=== PATIENT | male | born 1970 | race Caucasian/White ===

== ENCOUNTER 2022-07-22 23:11 | Emergency (ER) | payer OTHER, SELFPAY ==
[2022-07-22 23:15] VITALS: O2SAT 99
[2022-07-22 23:18] VITALS: BP 133/70; PULSE 89; RESP 18; TEMP 36.7; O2SAT 99
[2022-07-22] MEDS: lidocaine HCL 2 % MULTIDOSE 20 ML VIAL INJECTION (23:18)
[2022-07-22] MEDS: fentaNYL 100 MCG/2 ML inj IM (23:36)
--- OUTSIDE RECORDS SUMMARY | 2022-07-23 00:11 | XMS_ITS | Continuity of Care Document ---
Author Name Unknown Organization [facility] Address [address] [address] [place] [address] Phone Care Team Providers Care Developer Support Engineer Name Role Phone Unavailable Unavailable Unavailable Allergies, Adverse Reactions, Alerts Substance Reaction Status Criticality No Known allergies Medications Medication Instructions Dosage Effective Dates (start - stop) Status Comments omeprazole 20 mg Cap, Delayed Release take 1 capsule (20MG) by oral route every day 1/2 hour before breakfast 20 MG - Active Procedures Procedure Date Ugi Endo; W/bx 1/mx Level Iv-surg Path Gross/micro 11 Immunocytochemistry, Each Antibody Advance Directives Directive Yes / No Effective Date File Name No Information Encounters Encounter Description Practice Location Reason(s) For Visit Diagnoses Date Provider Providers Copied on Encounter [facility] JOSE FRANCISCO, [address] [address], [place], [place], [id number], [place] tel:[phone] [facility] Procedures No Information No Information [facility] JOSE FRANCISCO, [address] [address], [place], [place], [id number], [place] tel:[phone] Larisa [facility] Gastritis W/o BleedGastroduod enal Dis NosDyspepsia/ac id Peptic Disease Link MD Owens. [address], [place], [place], [id number], [place]. tel:[phone] Referring Provider: [place], [address] [place], [address]. tel:[phone] Family History Family Member Type Diagnosis Age At Onset No Information Payers Payer name Insurance type Covered libertarian ID Authoriza tion(s) No Information Social History Type Description Quantity Date Captured Comments Sex Male Smoking Status No Information Chief Complaint And Reason For Visit No Information Reason For Referral Reason For Referral No Information Plan Of Treatment Date Type Action Status No Information History Of Present Illness Encounter Date Complaint History Of Prese nt Illness No Information Functional Status Date Functional Assessmen t No Information Instructions Date Instruction Additional Infor mation No Information Assessments Type Assessment Date No Information Patient Care Teams Name Effective Dates (start - stop) Status Members No Information
--- OUTSIDE RECORDS SUMMARY | 2022-07-23 00:11 | XMS_ITS | Continuity of Care Document ---
Author Name Unknown Organization [facility] Address [address] [address] [place] [address] Phone Care Team Providers Care Bone Grinder Name Role Phone Unavailable Unavailable Unavailable Allergies, [...] Date Provider Providers Copied on Encounter [facility] JOSE FRANCISCO, [address] [address], [place], [place], [id number], [place] tel:[phone] [facility] Procedures No Information No Information [facility] JOSE FRANCISCO, [address] [address], [place], [place], [id number], [place] tel:[phone] Larisa [facility] Gastritis W/o BleedGastroduod enal Dis NosDyspepsia/ac id Peptic Disease Link MD Owens. [address], [place], [place], [id number], [place]. tel:[phone] Referring Provider: [place], [address] [place], [address]. tel:[phone] Family History Family Member Type Diagnosis Age At Onset No Information Payers Payer name Insurance type Covered republican ID Authoriza tion(s) No Information Social History [...]
[2022-07-23 00:16] VITALS: BP 125/68; PULSE 78; RESP 18; TEMP 36.7; O2SAT 99
[2022-07-23 00:17] VITALS: BP 125/68; PULSE 78; RESP 18; TEMP 36.7
--- NOTE | 2022-07-23 16:40 | ED.GENADULT ---
HPI - General Adult General Chief complaint: Shoulder Injury/Pain Stated complaint: Dislocated left shoulder Time Seen by Provider: 07/22/22 23:14 History of Present Illness HPI narrative: Left Shoulder Dislocation pt. rolled in bed and should popped out of place. has happened before . cms intact. 51-year-old man presenting to the emergency department with significant other. Apparently tonight rolled over in bed and had abrupt onset of pain in the left shoulder. Has a history of dislocation of the shoulder approximately 3 times. Last time sounds like manipulation was attempted right away on presentation. He is having much more pain this time than prior. This was not a traumatic event here. Sensation intact. Related Data Home Medications Medication Instructions Recorded Confirmed No Known Home Medications 07/22/22 07/22/22 Allergies Allergy/AdvReac Type Severity Reaction Status Date / Time No Known Drug Allergies Allergy Verified 07/22/22 23:20 [facility] Medical History (Updated 07/23/22 @ 00:16 by Mello Hurtado RN) No significant past medical history Surgical History (Updated 07/23/22 @ 00:16 by Mello Hurtado RN) No significant past surgical history Social History Smoking Status: Never smoker Second hand tobacco smoke exposure: No How often do you have a drink containing alcohol: never How often do you have six or more drinks on one occasion: Never AUDIT-C Alcohol total score: 0 Non-prescribed substance use: denies use Exam Narrative: Exam Narrative: Large sulcus evident in the left deltoid consistent with anterior shoulder dislocation. Favoring left arm placed on a pillow bent at 90? of the elbow in front of him. Very uncomfortable though breathing easily. Intact sensation distally. Well-perfused. Const: Vital Signs, click to edit/add: Vital Signs - 24 hr 07/22/22 23:15 07/22/22 23:18 07/23/22 00:16 Temperature 98.0 F 98.0 F Pulse Rate [Right Pulse Oximeter] 89 78 Respiratory Rate 18 18 Blood Pressure [Ri ght Upper Arm] 133/70 125/68 Pulse Oximetry 99 99 99 Oxygen Delivery Me thod Room Air Room Air 07/23/22 00:17 Temperature 98.0 F Pulse Rate [Right Pulse Oximeter] 78 Respiratory Rate 18 Blood Pressure [Ri ght Upper Arm] 125/68 Pulse Oximetry Oxygen Delivery Me thod Documenting provider has reviewed patient's vital signs: yes Course Vital Signs Vital signs: Initial Vital Signs Pulse Oximetry 99 07/22/22 23:15 Vital Signs Pulse Oximetry 99 07/22/22 23:15 Temperature 98.0 F 07/23/22 00:17 Pulse Rate 78 07/23/22 00:17 Respiratory Rate 18 07/23/22 00:17 Blood Pressure 125/68 07/23/22 00:17 Pulse Oximetry 99 07/23/22 00:16 Oxygen Delivery Method Room Air 07/23/22 00:16 Medical Decision Making MDM Narrative Medical decision making narrative: Appears to clearly be an anterior shoulder dislocation. Due to recurrence of dislocations and ease of dislocation here tonight as described, I do not think imaging is necessary. After cleansing area with Betadine, injected 6 mL of 2% lidocaine into this sulcus/glenohumeral joint. He appears to be too tender just to quickly replace as I suspect resulting muscles spasm in resistance. Placed face down to traction. Attempted a little scapular manipulation but still too tender and tense. Ultimately also given IM fentanyl. Said he started to feel tingly. Shoulder subsequently spontaneously reduced with the traction. Able to move arm at the shoulder without significant pain. Sensation intact. Discharge Plan Discharge Clinical Impression: Anterior dislocation of left shoulder Patient Disposition: Home w/ Parent or Adult Condition: Improved Additional Instructions: Wear this arm sling for comfort over the next week to 10 days. See handout on exercises to stabilize your shoulder. Might follow up with primary care/physical therapy or even have a conversation with Orthopedics if this continues to be an issue. Prescriptions: No Action No Known Home Medications Stand Alone Forms: [employer] Info Instructions
== END 2022-07-23 00:18 | disposition home or self-care (01) ==
LOC: ED 07-23 00:09
PROVIDERS: Emergency Provider Family Medicine; PCP Family Medicine
DX: S43.005A Unspecified dislocation of left shoulder joint, initial encounter (principal); X58.XXXA Exposure to other specified factors, initial encounter; Y92.013 Bedroom of single-family (private) house as the place of occurrence of the external cause
CPT/HCPCS: 23650; 94761; 96372; 99284; J3010

== ENCOUNTER 2022-09-30 18:22 | Emergency (ER) | payer OTHER, SELFPAY ==
[2022-09-30 18:28] VITALS: BP 137/79; PULSE 70; RESP 18; TEMP 36.2; O2SAT 97; BMI 30.8
--- NOTE | 2022-09-30 19:09 | ED_ITS ---
HPI - Skin/Abscess/Foreign Bdy General Chief complaint: Skin/Abscess/Foreign Body Stated complaint: Rash on R side getting larger Time Seen by Provider: 09/30/22 18:34 Source: patient and family Mode of arrival: ambulatory Limitations: no limitations History of Present Illness HPI narrative: 52-year-old male presents to the emergency department for evaluation of rash on his right chest. Started under his right nipple 6 days ago, tender, thought it was a spider bite. Did not try any topical measures. Over the last few days, pain is increasing, wrapping around the right chest and back with sharp shooting pain and burning sensation at times. This is his 1st evaluation. No fever. Is feeling mildly achy and ill but no severe illness. No fever. No shortness of breath, dyspnea or other changes. No other family members have similar symptoms. No prior similar symptoms. He did have chickenpox as a child. No risk factors for contact with unvaccinated women or children under the age of 1. Past medical history is essentially benign. He denies major long-term health problems. ROS is notable for no other generalized, skin, musculoskeletal, respiratory changes. Related Data Previous Rx's Medication Instructions Recorded valacyclovir 1 gram tablet 1,000 mg PO BID #14 tabs 09/30/22 (Valtrex) Allergies Allergy/AdvReac Type Severity Reaction Status Date / Time No Known Drug Allergies Allergy Verified 07/22/22 23:20 [facility] Medical History (Updated 09/30/22 @ 18:58 by Marcelle Perdue MD) No significant past medical history Surgical History (Updated 07/23/22 @ 00:16 by Mello Hurtado RN) No significant past surgical history Social History Smoking Status: Never smoker Do you use any of these nicotine containing products: None Second hand tobacco smoke exposure: No How often do you have a drink containing alcohol: 2-4 times a month How many standard drinks containing alcohol do you have on a typical day: 1 or 2 How often do you have six or more drinks on one occasion: Never AUDIT-C Alcohol total score: 2 Non-prescribed substance use: denies use service: No Exam Const: Vital Signs, click to edit/add: Vital Signs - 24 hr 09/30/22 18:28 Temperature 97.1 F L Pulse Rate [Pulse Oximeter] 70 Respiratory Rate 18 Blood Pressure [Ri ght Upper Arm] 137/79 Pulse Oximetry 97 Oxygen Delivery Me thod Room Air Common normals: no apparent distress General appearance: cooperative, c omfortable and well kempt HENMT: Common normals: normocephalic Head and scalp: normocephalic Face and sinus: normal facial exam Eye: General eye: normal appearance of both eyes Resp: Common normals: normal respiratory effort and no use of accessory muscles Effort & inspection: able to speak in complete sentences Psych: Appearance: well kempt Activity/motor behavior: appropriate eye contact Mood and affect: euthymic mood Insight: insight good Judgement: judgment good Skin: Narrative: Classic blistery shingles rash wrapping around the T5 right dermatome from the back to under the right nipple. No lesions with significant surrounding redness, drainage. Course Course Hospital Course: Counseled on management, discussed risks and benefits of Valtrex on day 6. Can reduce the risk of post herpetic neuralgia. First dose given here in ED, add itional supply sent to pharmacy. Counseled on Tylenol and ibuprofen for pain control. Okay to use [id number] Vaseline for topical irritation. Lesions should crust over within about a week, resolve in about 2 more weeks. Did discuss shingles vaccine, should weight 60 days before receiving. Alarm symptoms reviewed that would warrant ED evaluation. He verbalized understanding and agreement Vital Signs Vital signs: Initial Vital Signs Temperature 97.1 F L 09/30/22 18:28 Temperature Source Temporal Artery Scan 09/30/22 18:28 Pulse Rate 70 09/30/22 18:28 Pulse Rhythm Regular 09/30/22 18:28 Respiratory Rate 18 09/30/22 18:28 Blood Pressure 137/79 09/30/22 18:28 Blood Pressure Mean 98 09/30/22 18:28 Blood Pressure Position Supine 09/30/22 18:28 Pulse Oximetry 97 09/30/22 18:28 Oxygen Delivery Method Room Air 09/30/22 18:28 Vital Signs Temperature 97.1 F L 09/30/22 18:28 Pulse Rate 70 09/30/22 18:28 Respiratory Rate 18 09/30/22 18:28 Blood Pressure 137/79 09/30/22 18:28 Pulse Oximetry 97 09/30/22 18:28 Oxygen Delivery Method Room Air 09/30/22 18:28 Temperature 97.1 F L 09/30/22 18:28 Pulse Rate 70 09/30/22 18:28 Respiratory Rate 18 09/30/22 18:28 Blood Pressure 137/79 09/30/22 18:28 Pulse Oximetry 97 09/30/22 18:28 Oxygen Delivery Method Room Air 09/30/22 18:28 Discharge Plan Discharge Clinical Impression: Herpes zoster Patient Disposition: Home w/ Parent or Adult Condition: Stable Instructions: Shingles (ED) Additional Instructions: As we discussed, this is classic shingles. Unfortunately, at day 6, this really just has to run its course. I do recommend that we start you on an antiviral medicine to reduce contagiousness but more importantly to reduce your risk of post herpetic neuralgia. Post herpetic neuralgia it is permanent pain in the area of shingles. For pain control, it is okay to use Tylenol 1000 mg every 6 hours and or ibuprofen 600 mg every 6 hours. You do not need to apply any topical creams or ointments but if you choose to, plain Vaseline is best. As we discussed, avoid children under the age of 1 and/or unvaccinated women with direct contact to your skin. Things will gradually crust over over the next 1-2 weeks and he will in time. You are at risk of getting shingles again. You should consider the shingles vaccine. You are eligible for this. For maximum immune response, I would recommend you weight 60 days after this episode to get your 1st vaccine. Activity Level: No Restrictions Discharge Diet: Regular Prescriptions: New valacyclovir [Valtrex] 1 gram tablet 1,000 mg PO BID Qty: 14 0RF Follow Up/Referrals: Todd Ortiz MD [Primary Care Provider] - Stand Alone Forms: [employer] Info Instructions
[2022-09-30] MEDS: VALACYCLOVIR HCL 500 MG TABLET 1000 MG PO (19:22)
== END 2022-09-30 19:33 | disposition home or self-care (01) ==
LOC: ED 19:21
PROVIDERS: Emergency Provider Family Medicine; PCP Family Medicine
DX: B02.9 Zoster without complications (principal)
CPT/HCPCS: 96372; 99283; 99284; A9270

== ENCOUNTER 2022-12-05 09:09 | Outpatient (CLI) | payer OTHER, SELFPAY | END 2022-12-05 09:10 | disposition home or self-care (01) | PROVIDERS: PCP Family Medicine; Visit Provider Emergency Medicine | DX: Z00.00 Encounter for general adult medical examination without abnormal findings (principal); Z13.6 Encounter for screening for cardiovascular disorders; Z12.5 Encounter for screening for malignant neoplasm of prostate; Z68.30 Body mass index [BMI] 30.0-30.9, adult | CPT/HCPCS: 80053; 80061; 84153 ==

== ENCOUNTER 2023-10-23 08:10 | Outpatient (CLI) | payer OTHER, SELFPAY ==
--- OUTSIDE RECORDS SUMMARY | 2023-10-27 07:01 | XMS_ITS | Encounter Summary ---
Author Organization [facility] Address [address] [place] [address]. [place] [address] Care Team Providers Care Pelts Skinner Name Role Phone David Medley MD Primary Care Provider [phone] Reason for Visit * Auth/Cert Specialty Diagnoses / Procedures Referred By Morales cole Referred To Contact Gastroenterology Diagnoses Colon cancer screening Colon cancer screening [Z12.11] Procedures [place] COLONOSCOPY W/WO BRUSH/WASH Colonoscopy Endoscopy [address] [place] [address] Referral ID Status Reason Start Date Expiration Date Visits Re quested Visits Authorized [id number] 1 1 Encounter Details Date Type Department Care Team (Late st Contact Info) Description 08/23/2023 1:15 PM CDT - 08/23/2023 1:45 PM CDT Surgery [facility] Endoscopy [place] [address] [place] [phone] Danitza Resendez MD [facility] [id number] [place] [id number] Colonoscopy Surgery Details Date/Time Status Location OR Service Patient Class Case Class Case Type Trauma Case? 08/23/23 1:15 PM Posted GI GI B Gastroenterology Outpatient Elective Panel 1 Procedure LRB Anes Op Region Wound Class Comments Colonoscopy N/A Moderate Sedation Rectum II-Clean C ontaminated Surgeon Surgeon Role Service Panel Danitza Resendez MD Primary Gastroenterology 1 documented in this encounter Social History Tobacco Use Types Packs/Day Years Used Date Smoking Tobacco: Never Alcohol Use Standard Drinks/Week Comments Yes 0 (1 standard drink = 0.6 oz pur e alcohol) 2 drinks per week Adolescent Education Answer Date Record ed Getting School Help Needed Not on file 07/22 Sex and Gender Information Value Date Recorded Sex Assigned at Not on file Gender Identity Not on file Sexual Orientation Not on file documented as of this encounter Last Filed Vital Signs Vital Sign Reading Time Taken Comments Blood Pressure 116/79 08/23/2023 1:40 PM CDT Pulse 72 08/23/2023 1:40 PM CDT Temperature - - Respiratory Rate 15 08/23/2023 1:40 PM CDT Oxygen Saturation 97% 08/23/2023 1:40 PM CDT Inhaled Oxygen Concentration - - Weight 102.1 kg (225 lb) 08/23/2023 12:51 PM CDT Height 188 cm (6' 2) 08/23/2023 12:51 PM CDT Body Mass Index 28.89 08/23/2023 12:51 PM CDT documented in this encounter Discharge Instructions * Discharge Instructions* Victoria Chi RN - 08/23/2023 1:25 PM CDT The patient has received a copy of the Provation report the doctor has written and discharge instructions have been discussed with the patient and responsible adult. All questions were addressed and answered prior to patient discharge. * Attachments The following attachments cannot be sent through Care Everywhere. * Diverticulosis and Diverticulitis: General Info (Greenlandic) * High-Fiber Diet (Greenlandic) documented in this encounter Medications at Time of Discharge Medication Sig Dispensed Refills Start Date End Date NO ACTIVE MEDICATIONS documented as of this encounter H&P Notes * Danitza Resendez MD - 08/23/2023 12:52 PM CDT Pre-Endoscopy History and Physical Andi Alexander Date of : 1970 Age: [age] year old Date of Procedure: 08/23/2023 Primary care provider: David Medley Type of Endoscopy: Colonoscopy with possible biopsy, possible polypectomy Reason for Procedure: screen Type of Anesthesia Anticipated: Conscious Sedation HPI: Andi is a 52 year old male who will be undergoing the above procedure. A history and physical has been performed. The patient's medications and allergies have been reviewed. The risks and benefits of the procedure and the sedation options and risks were discussed with the patient. All questions were answered and informed consent was obtained. He denies a personal or family history of anesthesia complications or bleeding disorders. Patient Active Problem List Diagnosis (none) - all problems resolved or deleted No past medical history on file. Past Surgical History: Procedure Laterality Date COLONOSCOPY 03/17/2013 Dr. Resendez [facility] COLONOSCOPY 03/17/2013 Procedure: COLONOSCOPY; Colonoscopy/WW; Surgeon: Danitza Resendez MD; Location: GI Social History Tobacco Use Smoking status: Never Smokeless tobacco: Not on file Substance Use Topics Alcohol use: Yes Comment: 2 drinks per week History reviewed. No pertinent family history. Prior to Admission medications Medication Sig Start Date End Date Taking? Authorizing Provider NO ACTIVE MEDICATIONS Reported, Patient No Known Allergies REVIEW OF SYSTEMS: 5 point ROS negative except as noted above in HPI, including Gen., Resp., CV, GI & system review. PHYSICAL EXAM: There were no vitals taken for this visit. Estimated body mass index is 30.17 kg/m?? as calculated from the following: Height as of 03/16/13: 1.88 m (6' 2). Weight as of 03/16/13: 106.6 kg (235 lb). GENERAL APPEARANCE: alert, and oriented MENTAL STATUS: alert AIRWAY EXAM: Mallampatti Class I (visualization of the soft palate, fauces, uvula, anterior and posterior pillars) RESP: lungs clear to auscultation - no rales, rhonchi or wheezes CV: regular rates and rhythm DIAGNOSTICS: Not indicated IMPRESSION ASA Class 2 - Mild systemic disease PLAN: Plan for Colonoscopy with possible biopsy, possible polypectomy. We discussed the risks, benefits and alternatives and the patient wished to proceed. The above has been forwarded to the consulting provider. Signed Electronically by: Danitza Resendez MD August 23, 2023 documented in this encounter Plan of Treatment Not on file documented as of this encounter Procedures Procedure Name Priority Date/Time Associated Diagnosis Comments Colonoscopy w/wo [place] Performed 08/23/2023 12:54 PM CDT Colon cancer screening COLONOSCOPY Routine 08/23/2023 12:46 PM CDT documented in this encounter Results * COLONOSCOPY (08/23/2023 12:46 PM CDT) [facility] Patient Name: Andi Alexander ? Procedure Date: 08/23/2023 12:46 PM ? Date of : 1970 ?Admit Type: Outpatient Age: 52 ? Gender: Male Attending MD: DANITZA RESENDEZ MD, ??Total Sedation Time: 17_minutes continuous bedside 1:1 Instrument Name: 223 - Adult Colonoscope Procedure: ?Colonoscopy Indications: ?Screening for colorectal malignant neoplasm Providers: ?DANITZA RESENDEZ MD (Doctor) Referring MD: ? Medicines: ?Midazolam 3 mg IV, Fentanyl 150 micrograms IV Complications: ?No immediate complications. Procedure: ?Pre-Anesthesia Assessment: ?- Prior to the procedure, a History and Physical ?was performed, and patient medications and ?allergies were reviewed. The patient is competent. ?The risks and benefits of the procedure and the ?sedation options and risks were discussed with the ?patient. All questions were answered and informed ?consent was obtained. Patient identification and ?proposed procedure were verified by the physician ?in the procedure room. Mental Status Examination: ?alert and oriented. Airway Examination: normal ?oropharyngeal airway and neck mobility. Respiratory ?Examination: clear to auscultation. CV Examination: ?normal. Prophylactic Antibiotics: The patient does ?not require prophylactic antibiotics. Prior ?Anticoagulants: The patient has taken no ?anticoagulant or antiplatelet agents. ASA Grade ?Assessment: II - A patient with mild systemic ?disease. After reviewing the risks and benefits, ?the patient was deemed in satisfactory condition to ?undergo the procedure. The anesthesia plan was to ?use moderate sedation / analgesia (conscious ?sedation). Immediately prior to administration of ?medications, the patient was re-assessed for ?adequacy to receive sedatives. The heart rate, ?respiratory rate, oxygen saturations, blood ?pressure, adequacy of pulmonary ventilation, and ?response to care were monitored throughout the ?procedure. The physical status of the patient was ?re-assessed after the procedure. ?After obtaining informed consent, the colonoscope ?was passed under direct vision. Throughout the ?procedure, the patient's blood pressure, pulse, and ?oxygen saturations were monitored continuously. The ?Cryptmint Adult Colonoscope, Model # CF-[id number], ?Censitrac # [id number] was introduced through the ?anus and advanced to the terminal ileum, with ?identification of the appendiceal orifice and IC ?valve. The colonoscopy was performed without ?difficulty. The patient tolerated the procedure ?fairly well. The quality of the bowel preparation ?was good. The ileocecal valve, appendiceal orifice, ?and rectum were photographed. ? Findings: ? The perianal and digital rectal examinations were normal. ? Many small-mouthed diverticula were found in the sigmoid colon. ? The exam was otherwise without abnormality on direct and retroflexion ? views. ? The terminal ileum appeared normal. ? Impression: ? - Diverticulosis in the sigmoid colon. ?- The examination was otherwise normal on direct ?and retroflexion views. ?- No specimens collected. Recommendation: ? - Repeat colonoscopy in 10 years for screening ?purposes. ? Procedure Code(s): ? --- Professional --- ? G0121, Colorectal cancer screening; colonoscopy on individual not ? meeting criteria for high risk Diagnosis Code(s): ? --- Professional --- ? Z12.11, Encounter for screening for malignant neoplasm of colon CPT copyright 2021 [employer]. All rights reserved. The codes documented in this report are preliminary and upon mounted police review may be revised to meet current compliance requirements. Electronically signed by Danitza Resendez MD __ DANITZA RESENDEZ MD 08/23/2023 1:19:20 PM I was physically present for the entire viewing portion of the exam. DANITZA RESENDEZ MD Number of Addenda: 0 Note Initiated On: 08/23/2023 12:46 PM MRN: ?[id number] Procedure Date: ? 08/23/2023 12:46:44 PM Scope Withdrawal Time: 0 hours 7 minutes 12 seconds Total Procedure Duration: 0 hours 15 minutes 59 seconds Estimated Blood Loss: ? Scope In: 12:58:34 PM Scope Out: 1:14:33 PM RADIOLOGY RESULTS 08/23/2023 12:4 6 PM CDT Danitza Resendez MD PROCEDURES RADIOLOGY RESULTS documented in this encounter Visit Diagnoses Diagnosis Colon cancer screening Special screening for malignant neoplasms, colon documented in this encounter Administered Medications Inactive Administered Medications - up to 3 most recent administrations Medication Order MAR Action Action Date Dose Rate Site atropine injection 1 mg 1 mg, Intravenous, ONCE PRN, other, Bradycardia, Starting on Sat08/23/23 at 1251, For 1 dose, Intra-procedure benzocaine 20% (HURRICAINE/TOPEX) 20 % spray 0.5 mL 0.5 mL (1 spray), Mouth/Throat, ONCE PRN, sore throat, Starting on Sat08/23/23 at 1251, For 1 dose, [place] throat with 1 spray 5 minutes prior to procedure., Intra-procedure diphenhydrAMINE (BENADRYL) injection 25-50 mg 25-50 mg, Intravenous, ONCE PRN, other, for sedations, dose per provider direction., Administer over 1-2 Minutes, Starting on Sat08/23/23 at 1251, For 1 dose, Intra-procedure EPINEPHrine (Anaphylaxis) (ADRENALIN) injection (vial) 0.1 mg 0.1 mg, Submucosal, ONCE PRN, bleeding, Starting on Sat08/23/23 at 1251, For 1 dose, RN to dilute 1 mL (1 mg) of EPINEPHrine with 9 mL of 0.9% sodium chloride to equal a 0.1 mg/mL concentration. Inject 1 mL (0.1 mg) into submucosa via a sclerotherapy injection needle. Not for direct undiluted intravenous injection (1 mg/mL = 1:1000), Intra-procedure fentaNYL (PF) (SUBLIMAZE) injection 50-100 mcg 50-100 mcg, Intravenous, EVERY 5 MIN PRN, severe pain, If inadequate response may repeat every 3 min PRN severe pain; when verbally requested by provider., Starting on Sat08/23/23 at 1251, Doses can be exceeded under direct oversight of patient by physician., Intra-procedure $Given 08/23/2023 1:04 PM CDT 50 mcg $Given 08/23/2023 12:57 PM CDT 100 mcg flumazenil (ROMAZICON) injection 0.2 mg 0.2 mg, Intravenous, EVERY 1 MIN PRN, benzodiazepine reversal, If inadequate response after 45 seconds, may repeat 0.2 mg IV every 1 minute PRN over sedation., Administer over 1 Minutes, Starting on Sat08/23/23 at 1251, Give over 15 seconds. Maximum total dose of 1 mg. Continue monitoring until discharge criteria met for a minimum of 2 hours. Irritant. Use with caution in patients on benzodiazepine therapy., Intra-procedure flumazenil (ROMAZICON) injection 0.2 mg 0.2 mg, Intravenous, EVERY 1 MIN PRN, benzodiazepine reversal, over sedation, Administer over 1 Minutes, Starting on Sat08/23/23 at 1325, For 12 hours, Give over 15 seconds. If inadequate response after 45 seconds, may repeat up to a MAX total dose of 1 mg. Continue monitoring until discharge criteria are met for a minimum of 2 hours Irritant. Use with caution in patients on benzodiazepine therapy. glucagon injection 0.5 mg 0.5 mg, Intravenous, ONCE PRN, other, gi motility, Starting on Sat08/23/23 at 1251, For 1 dose, Intra-procedure lidocaine (LMX4) cream Topical, EVERY 1 HOUR PRN, pain, with VAD insertion, Starting on Sat08/23/23 at 1252, Apply at least 30 minutes prior to VAD insertion in divided doses as needed for size of site for insertion. MAX Dose: 2.5 g (?? of 5 g tube) Do NOT give if patient has a history of allergy to any local anesthetic or any jennifer product. Do NOT use both lidocaine intradermal/subcutaneous injection and the lidocaine cream on the same site., Pre-procedure lidocaine 1 % 0.1-1 mL 0.1-1 mL, Other, EVERY 1 HOUR PRN, mild pain with VAD insertion, Starting on Sat08/23/23 at 1252, MAX dose 1 mL subcutaneous OR intradermal along the side of the vein in divided doses as needed for VAD insertion. Do NOT give if patient has a history of allergy to any local anesthetic or any jennifer product. Do NOT use both lidocaine intradermal/subcutaneous injection and the lidocaine cream on the same site., Pre-procedure midazolam (VERSED) injection 0.5-2 mg 0.5-2 mg, Intravenous, EVERY 4 MIN PRN, sedation, If inadequate response may repeat every 4 minutes PRN sedation until desired response; when verbally requested by provider., Starting on Sat08/23/23 at 1251, Doses can be exceeded under direct oversight of patient by physician. This drug may cause significant respiratory depression. Monitor respiratory status and vital signs carefully for 1 hour after each dose., Intra-procedure $Given 08/23/2023 1:04 PM CDT 1 mg $Given 08/23/2023 12:57 PM CDT 2 mg naloxone (NARCAN) injection 0.2 mg 0.2 mg, Intravenous, EVERY 2 MIN PRN, opioid reversal, Starting on Sat08/23/23 at 1251, Administer intravenous route when available and notify provider when administered. For unintended sedation or respiratory depression if all of the below criteria are met: ~ respiratory rate LESS than or EQUAL to 8. ~SaO2 less than 92% and or/end-tidal CO2 is greater than 50. ~ the patient is receiving an opioid, has unintended sedations assessed as RASS (-3), and is currently not on mechanical ventilation. RASS scale moderate (-3) is movement or eye opening to voice but no eye contact. Patient Monitoring Once the patient has demonstrated a response to the naloxone, continue to monitor respiratory rate, depth, oxygen saturation and end-tidal CO2 (if available) every 15 minutes x 2, then every 30 minutes x 2, then every 1 hour x 1 after each naloxone dose. Consider transfer to ICU if patient respiratory parameters have not improved after 4 naloxone doses., Intra-procedure naloxone (NARCAN) injection 0.2 mg 0.2 mg, Intramuscular, EVERY 2 MIN PRN, opioid reversal, Starting on Sat08/23/23 at 1251, Administer intramuscular if an intravenous route is not available and notify provider when administered. For unintended sedation or respiratory depression if all of the below criteria are met: ~ respiratory rate LESS than or EQUAL to 8. ~SaO2 less than 92% and or/end-tidal CO2 is greater than 50. ~ the patient is receiving an opioid, has unintended sedations assessed as RASS (-3), and is currently not on mechanical ventilation. RASS scale moderate (-3) is movement or eye opening to voice but no eye contact. Patient Monitoring Once the patient has demonstrated a response to the naloxone, continue to monitor respiratory rate, depth, oxygen saturation and end-tidal CO2 (if available) every 15 minutes x 2, then every 30 minutes x 2, then every 1 hour x 1 after each naloxone dose. Consider transfer to ICU if patient respiratory parameters have not improved after 4 naloxone doses., Intra-procedure naloxone (NARCAN) injection 0.4 mg 0.4 mg, Intravenous, EVERY 2 MIN PRN, opioid reversal, Starting on Sat08/23/23 at 1251, Administer intravenous route when available and notify provider when administered. For unintended sedation or respiratory depression if all of the below criteria are met: ~ respiratory rate LESS than or EQUAL to 8. ~ SaO2 less than 92% and or/end-tidal CO2 is greater than 50. ~ the patient is receiving an opioid, has unintended sedation assessed as RASS (-4) or (-5) and patient is currently not on mechanical ventilation. RASS scale (-4) is deep sedation with no response to voice but movement or eye opening to physical stimulation. RASS scale (-5) is unarousable. Patient Monitoring Once the patient has demonstrated a response to the naloxone, continue to monitor respiratory rate, depth, oxygen saturation and end-tidal CO2 (if available) every 15 minutes x 2, then every 30 minutes x 2, then every 1 hour x 1 after each naloxone dose. Consider transfer to ICU if patient respiratory parameters have not improved after 4 naloxone doses., Intra-procedure naloxone (NARCAN) injection 0.4 mg 0.4 mg, Intramuscular, EVERY 2 MIN PRN, opioid reversal, Starting on Sat08/23/23 at 1251, Administer intramuscular if an intravenous route is not available and notify provider when administered. For unintended sedation or respiratory depression if all of the below criteria are met: ~ respiratory rate LESS than or EQUAL to 8. ~ SaO2 less than 92% and or/end-tidal CO2 is greater than 50. ~ the patient is receiving an opioid, has unintended sedation assessed as RASS (-4) or (-5) and patient is currently not on mechanical ventilation. RASS scale (-4) is deep sedation with no response to voice but movement or eye opening to physical stimulation. RASS scale (-5) is unarousable. Patient Monitoring Once the patient has demonstrated a response to the naloxone, continue to monitor respiratory rate, depth, oxygen saturation and end-tidal CO2 (if available) every 15 minutes x 2, then every 30 minutes x 2, then every 1 hour x 1 after each naloxone dose. Consider transfer to ICU if patient respiratory parameters have not improved after 4 naloxone doses., Intra-procedure ondansetron (ZOFRAN ODT) ODT tab 4 mg 4 mg, Oral, EVERY 6 HOURS PRN, nausea, vomiting, Starting on Sat08/23/23 at 1325, This is Step 1 of nausea and vomiting management. If nausea not resolved in 15 minutes, go to Step 2 prochlorperazine (COMPAZINE). Do not push through foil backing. Peel back foil and gently remove. Place on tongue immediately. Administration with liquid unnecessary With dry hands, peel back foil backing and gently remove tablet. Do not push oral disintegrating tablet through foil backing. Administer immediately on tongue and oral disintegrating tablet dissolves in seconds, then swallow with saliva. Liquid not required. ondansetron (ZOFRAN) injection 4 mg 4 mg, Intravenous, ONCE PRN, nausea, vomiting, Administer over 2-5 Minutes, Starting on Sat08/23/23 at 1252, For 1 dose, Give in ENDO pre procedure prep area. Irritant., Pre-procedure ondansetron (ZOFRAN) injection 4 mg 4 mg, Intravenous, EVERY 6 HOURS PRN, nausea, vomiting, Administer over 2-5 Minutes, Starting on Sat08/23/23 at 1325, This is Step 1 of nausea and vomiting management. If nausea not resolved in 15 minutes, go to Step 2 prochlorperazine (COMPAZINE). Irritant. prochlorperazine (COMPAZINE) injection 10 mg 10 mg, Intravenous, EVERY 6 HOURS PRN, nausea, vomiting, Administer over 1-2 Minutes, Starting on Sat08/23/23 at 1325, This is Step 2 of nausea and vomiting management. If nausea not resolved in 15-30 minutes, Notify provider. prochlorperazine (COMPAZINE) tablet 10 mg 10 mg, Oral, EVERY 6 HOURS PRN, nausea, vomiting, Starting on Sat08/23/23 at 1325, This is Step 2 of nausea and vomiting management. If nausea not resolved in 15- 30 minutes, Notify provider. simethicone (MYLICON) suspension 133 mg 133 mg, Oral, ONCE PRN, other, gas bubbles, Starting on Sat08/23/23 at 1251, For 1 dose, Give via endoscope, Intra-procedure sodium chloride (PF) 0.9% PF flush 3 mL 3 mL, Intracatheter, EVERY 8 HOURS, First dose on Sat08/23/23 at 1300, to lock peripheral IV dormant line, Pre-procedure sodium chloride (PF) 0.9% PF flush 3 mL 3 mL, Intracatheter, EVERY 1 MIN PRN, line flush, other, to ensure patency or to lock dormant line, Starting on Sat08/23/23 at 1252, Pre-procedure sodium chloride (PF) 0.9% PF flush 3 mL 3 mL, Intravenous, EVERY 1 MIN PRN, line flush, Starting on Sat08/23/23 at 1251, Indications: for Peripheral IV flush post IV meds, Intra-procedure sodium chloride 0.9% BOLUS 500 mL Intravenous, 500 mL, ONCE PRN, at 500 mL/hr, Administer over 1 Hours, other, hypotension, Starting on Sat08/23/23 at 1251, For 1 dose, Intra-procedure documented in this encounter Active and Recently Administered Medications Times are shown in CDT. Scheduled Medication Order 08/21/2023 08/22/2023 08/23/2023 sodium chloride (PF) 0.9% PF flush 3 mL 3 mL, Intracatheter, EVERY 8 HOURS, First dose on Sat08/23/23 at 1300, to lock peripheral IV dormant line, Pre-procedure 1300 (Canceled Entry - Provider: Orders Generic Provider - Comment: Automatically canceled at discontinue of medication order) PRN Medication Order 08/21/2023 08/22/2023 08/23/2023 atropine injection 1 mg 1 mg, Intravenous, ONCE PRN, other, Bradycardia, Starting on Sat08/23/23 at 1251, For 1 dose, Intra-procedure benzocaine 20% (HURRICAINE/TOPEX) 20 % spray 0.5 mL 0.5 mL (1 spray), Mouth/Throat, ONCE PRN, sore throat, Starting on Sat08/23/23 at 1251, For 1 dose, [place] throat with 1 spray 5 minutes prior to procedure., Intra-procedure diphenhydrAMINE (BENADRYL) injection 25-50 mg 25-50 mg, Intravenous, ONCE PRN, other, for sedations, dose per provider direction., Administer over 1-2 Minutes, Starting on Sat08/23/23 at 1251, For 1 dose, Intra-procedure EPINEPHrine (Anaphylaxis) (ADRENALIN) injection (vial) 0.1 mg 0.1 mg, Submucosal, ONCE PRN, bleeding, Starting on Sat08/23/23 at 1251, For 1 dose, RN to dilute 1 mL (1 mg) of EPINEPHrine with 9 mL of 0.9% sodium chloride to equal a 0.1 mg/mL concentration. Inject 1 mL (0.1 mg) into submucosa via a sclerotherapy injection needle. Not for direct undiluted intravenous injection (1 mg/mL = 1:1000), Intra-procedure fentaNYL (PF) (SUBLIMAZE) injection 50-100 mcg 50-100 mcg, Intravenous, EVERY 5 MIN PRN, severe pain, If inadequate response may repeat every 3 min PRN severe pain; when verbally requested by provider., Starting on Sat08/23/23 at 1251, Doses can be exceeded under direct oversight of patient by physician., Intra-procedure 1257 ($Given - Provi abel: Magalis Ramirez RN)1304 ($Given - Provider: Magalis Ramirez RN) flumazenil (ROMAZICON) injection 0.2 mg 0.2 mg, Intravenous, EVERY 1 MIN PRN, benzodiazepine reversal, If inadequate response after 45 seconds, may repeat 0.2 mg IV every 1 minute PRN over sedation., Administer over 1 Minutes, Starting on Sat08/23/23 at 1251, Give over 15 seconds. Maximum total dose of 1 mg. Continue monitoring until discharge criteria met for a minimum of 2 hours. Irritant. Use with caution in patients on benzodiazepine therapy., Intra-procedure flumazenil (ROMAZICON) injection 0.2 mg 0.2 mg, Intravenous, EVERY 1 MIN PRN, benzodiazepine reversal, over sedation, Administer over 1 Minutes, Starting on Sat08/23/23 at 1325, For 12 hours, Give over 15 seconds. If inadequate response after 45 seconds, may repeat up to a MAX total dose of 1 mg. Continue monitoring until discharge criteria are met for a minimum of 2 hours Irritant. Use with caution in patients on benzodiazepine therapy. glucagon injection 0.5 mg 0.5 mg, Intravenous, ONCE PRN, other, gi motility, Starting on Sat08/23/23 at 1251, For 1 dose, Intra-procedure lidocaine (LMX4) cream Topical, EVERY 1 HOUR PRN, pain, with VAD insertion, Starting on Sat08/23/23 at 1252, Apply at least 30 minutes prior to VAD insertion in divided doses as needed for size of site for insertion. MAX Dose: 2.5 g (?? of 5 g tube) Do NOT give if patient has a history of allergy to any local anesthetic or any jennifer product. Do NOT use both lidocaine intradermal/subcutaneous injection and the lidocaine cream on the same site., Pre-procedure lidocaine 1 % 0.1-1 mL 0.1-1 mL, Other, EVERY 1 HOUR PRN, mild pain with VAD insertion, Starting on Sat08/23/23 at 1252, MAX dose 1 mL subcutaneous OR intradermal along the side of the vein in divided doses as needed for VAD insertion. Do NOT give if patient has a history of allergy to any local anesthetic or any jennifer product. Do NOT use both lidocaine intradermal/subcutaneous injection and the lidocaine cream on the same site., Pre-procedure midazolam (VERSED) injection 0.5-2 mg 0.5-2 mg, Intravenous, EVERY 4 MIN PRN, sedation, If inadequate response may repeat every 4 minutes PRN sedation until desired response; when verbally requested by provider., Starting on Sat08/23/23 at 1251, Doses can be exceeded under direct oversight of patient by physician. This drug may cause significant respiratory depression. Monitor respiratory status and vital signs carefully for 1 hour after each dose., Intra-procedure 1257 ($Given - Provi abel: Magalis Ramirez RN)1304 ($Given - Provider: Magalis Ramirez RN) naloxone (NARCAN) injection 0.2 mg(Linked Group 1) 0.2 mg, Intravenous, EVERY 2 MIN PRN, opioid reversal, Starting on Sat08/23/23 at 1251, Administer intravenous route when available and notify provider when administered. For unintended sedation or respiratory depression if all of the below criteria are met: ~ respiratory rate LESS than or EQUAL to 8. ~SaO2 less than 92% and or/end-tidal CO2 is greater than 50. ~ the patient is receiving an opioid, has unintended sedations assessed as RASS (-3), and is currently not on mechanical ventilation. RASS scale moderate (-3) is movement or eye opening to voice but no eye contact. Patient Monitoring Once the patient has demonstrated a response to the naloxone, continue to monitor respiratory rate, depth, oxygen saturation and end-tidal CO2 (if available) every 15 minutes x 2, then every 30 minutes x 2, then every 1 hour x 1 after each naloxone dose. Consider transfer to ICU if patient respiratory parameters have not improved after 4 naloxone doses., Intra-procedure naloxone (NARCAN) injection 0.2 mg(Linked Group 1) 0.2 mg, Intramuscular, EVERY 2 MIN PRN, opioid reversal, Starting on Sat08/23/23 at 1251, Administer intramuscular if an intravenous route is not available and notify provider when administered. For unintended sedation or respiratory depression if all of the below criteria are met: ~ respiratory rate LESS than or EQUAL to 8. ~SaO2 less than 92% and or/end-tidal CO2 is greater than 50. ~ the patient is receiving an opioid, has unintended sedations assessed as RASS (-3), and is currently not on mechanical ventilation. RASS scale moderate (-3) is movement or eye opening to voice but no eye contact. Patient Monitoring Once the patient has demonstrated a response to the naloxone, continue to monitor respiratory rate, depth, oxygen saturation and end-tidal CO2 (if available) every 15 minutes x 2, then every 30 minutes x 2, then every 1 hour x 1 after each naloxone dose. Consider transfer to ICU if patient respiratory parameters have not improved after 4 naloxone doses., Intra-procedure naloxone (NARCAN) injection 0.4 mg(Linked Group 1) 0.4 mg, Intravenous, EVERY 2 MIN PRN, opioid reversal, Starting on Sat08/23/23 at 1251, Administer intravenous route when available and notify provider when administered. For unintended sedation or respiratory depression if all of the below criteria are met: ~ respiratory rate LESS than or EQUAL to 8. ~ SaO2 less than 92% and or/end-tidal CO2 is greater than 50. ~ the patient is receiving an opioid, has unintended sedation assessed as RASS (-4) or (-5) and patient is currently not on mechanical ventilation. RASS scale (-4) is deep sedation with no response to voice but movement or eye opening to physical stimulation. RASS scale (-5) is unarousable. Patient Monitoring Once the patient has demonstrated a response to the naloxone, continue to monitor respiratory rate, depth, oxygen saturation and end-tidal CO2 (if available) every 15 minutes x 2, then every 30 minutes x 2, then every 1 hour x 1 after each naloxone dose. Consider transfer to ICU if patient respiratory parameters have not improved after 4 naloxone doses., Intra-procedure naloxone (NARCAN) injection 0.4 mg(Linked Group 1) 0.4 mg, Intramuscular, EVERY 2 MIN PRN, opioid reversal, Starting on Sat08/23/23 at 1251, Administer intramuscular if an intravenous route is not available and notify provider when administered. For unintended sedation or respiratory depression if all of the below criteria are met: ~ respiratory rate LESS than or EQUAL to 8. ~ SaO2 less than 92% and or/end-tidal CO2 is greater than 50. ~ the patient is receiving an opioid, has unintended sedation assessed as RASS (-4) or (-5) and patient is currently not on mechanical ventilation. RASS scale (-4) is deep sedation with no response to voice but movement or eye opening to physical stimulation. RASS scale (-5) is unarousable. Patient Monitoring Once the patient has demonstrated a response to the naloxone, continue to monitor respiratory rate, depth, oxygen saturation and end-tidal CO2 (if available) every 15 minutes x 2, then every 30 minutes x 2, then every 1 hour x 1 after each naloxone dose. Consider transfer to ICU if patient respiratory parameters have not improved after 4 naloxone doses., Intra-procedure ondansetron (ZOFRAN ODT) ODT tab 4 mg(Linked Group 2) 4 mg, Oral, EVERY 6 HOURS PRN, nausea, vomiting, Starting on Sat08/23/23 at 1325, This is Step 1 of nausea and vomiting management. If nausea not resolved in 15 minutes, go to Step 2 prochlorperazine (COMPAZINE). Do not push through foil backing. Peel back foil and gently remove. Place on tongue immediately. Administration with liquid unnecessary With dry hands, peel back foil backing and gently remove tablet. Do not push oral disintegrating tablet through foil backing. Administer immediately on tongue and oral disintegrating tablet dissolves in seconds, then swallow with saliva. Liquid not required. ondansetron (ZOFRAN) injection 4 mg 4 mg, Intravenous, ONCE PRN, nausea, vomiting, Administer over 2-5 Minutes, Starting on Sat08/23/23 at 1252, For 1 dose, Give in ENDO pre procedure prep area. Irritant., Pre-procedure ondansetron (ZOFRAN) injection 4 mg(Linked Group 2) 4 mg, Intravenous, EVERY 6 HOURS PRN, nausea, vomiting, Administer over 2-5 Minutes, Starting on Sat08/23/23 at 1325, This is Step 1 of nausea and vomiting management. If nausea not resolved in 15 minutes, go to Step 2 prochlorperazine (COMPAZINE). Irritant. prochlorperazine (COMPAZINE) injection 10 mg(Linked Group 3) 10 mg, Intravenous, EVERY 6 HOURS PRN, nausea, vomiting, Administer over 1-2 Minutes, Starting on Sat08/23/23 at 1325, This is Step 2 of nausea and vomiting management. If nausea not resolved in 15-30 minutes, Notify provider. prochlorperazine (COMPAZINE) tablet 10 mg(Linked Group 3) 10 mg, Oral, EVERY 6 HOURS PRN, nausea, vomiting, Starting on Sat08/23/23 at 1325, This is Step 2 of nausea and vomiting management. If nausea not resolved in 15-30 minutes, Notify provider. simethicone (MYLICON) suspension 133 mg 133 mg, Oral, ONCE PRN, other, gas bubbles, Starting on Sat08/23/23 at 1251, For 1 dose, Give via endoscope, Intra-procedure sodium chloride (PF) 0.9% PF flush 3 mL 3 mL, Intracatheter, EVERY 1 MIN PRN, line flush, other, to ensure patency or to lock dormant line, Starting on Sat08/23/23 at 1252, Pre-procedure sodium chloride (PF) 0.9% PF flush 3 mL 3 mL, Intravenous, EVERY 1 MIN PRN, line flush, Starting on Sat08/23/23 at 1251, Indications: for Peripheral IV flush post IV meds, Intra-procedure sodium chloride 0.9% BOLUS 500 mL Intravenous, 500 mL, ONCE PRN, at 500 mL/hr, Administer over 1 Hours, other, hypotension, Starting on Sat08/23/23 at 1251, For 1 dose, Intra-procedure Linked Groups Order Group 1: naloxone (NARCAN) injection 0.2 mgJump to med 0.2 mg, Intravenous, EVERY 2 MIN PRN, opioid reversal, Starting on Sat08/23/23 at 1251, Administer intravenous route when available and notify provider when administered. For unintended sedation or respiratory depression if all of the below criteria are met: ~ respiratory rate LESS than or EQUAL to 8. ~SaO2 less than 92% and or/end-tidal CO2 is greater than 50. ~ the patient is receiving an opioid, has unintended sedations assessed as RASS (-3), and is currently not on mechanical ventilation. RASS scale moderate (-3) is movement or eye opening to voice but no eye contact. Patient Monitoring Once the patient has demonstrated a response to the naloxone, continue to monitor respiratory rate, depth, oxygen saturation and end-tidal CO2 (if available) every 15 minutes x 2, then every 30 minutes x 2, then every 1 hour x 1 after each naloxone dose. Consider transfer to ICU if patient respiratory parameters have not improved after 4 naloxone doses., Intra- procedure Or naloxone (NARCAN) injection 0.4 mgJump to med 0.4 mg, Intravenous, EVERY 2 MIN PRN, opioid reversal, Starting on Sat08/23/23 at 1251, Administer intravenous route when available and notify provider when administered. For unintended sedation or respiratory depression if all of the below criteria are met: ~ respiratory rate LESS than or EQUAL to 8. ~ SaO2 less than 92% and or/end-tidal CO2 is greater than 50. ~ the patient is receiving an opioid, has unintended sedation assessed as RASS (-4) or (-5) and patient is currently not on mechanical ventilation. RASS scale (-4) is deep sedation with no response to voice but movement or eye opening to physical stimulation. RASS scale (-5) is unarousable. Patient Monitoring Once the patient has demonstrated a response to the naloxone, continue to monitor respiratory rate, depth, oxygen saturation and end-tidal CO2 (if available) every 15 minutes x 2, then every 30 minutes x 2, then every 1 hour x 1 after each naloxone dose. Consider transfer to ICU if patient respiratory parameters have not improved after 4 naloxone doses., Intra-procedure Or naloxone (NARCAN) injection 0.2 mgJump to med 0.2 mg, Intramuscular, EVERY 2 MIN PRN, opioid reversal, Starting on Sat08/23/23 at 1251, Administer intramuscular if an intravenous route is not available and notify provider when administered. For unintended sedation or respiratory depression if all of the below criteria are met: ~ respiratory rate LESS than or EQUAL to 8. ~SaO2 less than 92% and or/end-tidal CO2 is greater than 50. ~ the patient is receiving an opioid, has unintended sedations assessed as RASS (-3), and is currently not on mechanical ventilation. RASS scale moderate (-3) is movement or eye opening to voice but no eye contact. Patient Monitoring Once the patient has demonstrated a response to the naloxone, continue to monitor respiratory rate, depth, oxygen saturation and end-tidal CO2 (if available) every 15 minutes x 2, then every 30 minutes x 2, then every 1 hour x 1 after each naloxone dose. Consider transfer to ICU if patient respiratory parameters have not improved after 4 naloxone doses., Intra- procedure Or naloxone (NARCAN) injection 0.4 mgJump to med 0.4 mg, Intramuscular, EVERY 2 MIN PRN, opioid reversal, Starting on Sat08/23/23 at 1251, Administer intramuscular if an intravenous route is not available and notify provider when administered. For unintended sedation or respiratory depression if all of the below criteria are met: ~ respiratory rate LESS than or EQUAL to 8. ~ SaO2 less than 92% and or/end-tidal CO2 is greater than 50. ~ the patient is receiving an opioid, has unintended sedation assessed as RASS (-4) or (-5) and patient is currently not on mechanical ventilation. RASS scale (-4) is deep sedation with no response to voice but movement or eye opening to physical stimulation. RASS scale (-5) is unarousable. Patient Monitoring Once the patient has demonstrated a response to the naloxone, continue to monitor respiratory rate, depth, oxygen saturation and end-tidal CO2 (if available) every 15 minutes x 2, then every 30 minutes x 2, then every 1 hour x 1 after each naloxone dose. Consider transfer to ICU if patient respiratory parameters have not improved after 4 naloxone doses., Intra- procedure Group 2: ondansetron (ZOFRAN ODT) ODT tab 4 mgJump to med 4 mg, Oral, EVERY 6 HOURS PRN, nausea, vomiting, Starting on Sat08/23/23 at 1325, This is Step 1 of nausea and vomiting management. If nausea not resolved in 15 minutes, go to Step 2 prochlorperazine (COMPAZINE). Do not push through foil backing. Peel back foil and gently remove. Place on tongue immediately. Administration with liquid unnecessary With dry hands, peel back foil backing and gently remove tablet. Do not push oral disintegrating tablet through foil backing. Administer immediately on tongue and oral disintegrating tablet dissolves in seconds, then swallow with saliva. Liquid not required. Or ondansetron (ZOFRAN) injection 4 mgJump to med 4 mg, Intravenous, EVERY 6 HOURS PRN, nausea, vomiting, Administer over 2-5 Minutes, Starting on Sat08/23/23 at 1325, This is Step 1 of nausea and vomiting management. If nausea not resolved in 15 minutes, go to Step 2 prochlorperazine (COMPAZINE). Irritant. Group 3: prochlorperazine (COMPAZINE) injection 10 mgJump to med 10 mg, Intravenous, EVERY 6 HOURS PRN, nausea, vomiting, Administer over 1-2 Minutes, Starting on Sat08/23/23 at 1325, This is Step 2 of nausea and vomiting management. If nausea not resolved in 15-30 minutes, Notify provider. Or prochlorperazine (COMPAZINE) tablet 10 mgJump to med 10 mg, Oral, EVERY 6 HOURS PRN, nausea, vomiting, Starting on Sat08/23/23 at 1325, This is Step 2 of nausea and vomiting management. If nausea not resolved in 15- 30 minutes, Notify provider. documented in this encounter Care Teams Pelts Skinner Relationship Specialty Start Date End Date David Medley MD [facility] [address] [place] [phone] PCP - General Family Practice 09/23/11 documented as of this encounter
--- OUTSIDE RECORDS SUMMARY | 2023-10-27 07:01 | XMS_ITS | Clinical Summary ---
Author Organization [facility] Address [address] [place] [address]. [place] [address] Care Team Providers Care Pattern Designer Name Role Phone David Medley MD Primary Care Provider [phone] Allergies No known active allergies Medications Medication Sig Dispensed Refills Start Date End Date Status NO ACTIVE MEDICATIONS Act zeinab Resolved Problems Problem Noted Date Diagnosed Date Resolved Date Other joint derangement, not elsewhere classified, shoulder region 04/13/2013 06/17/2013 Encounters Date Type Department Care Team Description 08/23/2023 1:15 PM CDT - 08/23/2023 1:45 PM CDT Surgery [facility] [place] [address] [place] [address] Danitza Resendez MD Colonoscopy 08/23/2023 12:35 PM CDT - 08/23/2023 1:53 PM CDT Hospital Encounter [facility] [place] [address] [place] [address] Danitza Resendez MD Discharge Disposition: Home or Self Care 08/16/2023 Telephone [facility] Gastroenterology [address] [place] [address] Dee Johnson, RN Pt. Information/instru ction (Colonoscopy ) 08/16/2023 Telephone [facility] [address] [place] [address] Sherly Saeed Appointment (COLON) from Last 3 Months Immunizations Name Administration Dates Next Due TDAP Vaccine (Adacel) 09/23/2011 Social History Tobacco Use Types Packs/Day Years [...] on file Sexual Orientation Not on file Last Filed Vital Signs Vital Sign Reading Time Taken Comments Blood Pressure 116/79 08/23/2023 1:40 PM CDT Pulse 72 08/23/2023 1:40 PM CDT Temperature 36.4 ??C (97.6 ??F) 03/16/2013 9:42 PM CS T Respiratory Rate 15 08/23/2023 1:40 PM CDT Oxygen Saturation 97% 08/23/2023 1:40 PM CDT Inhaled Oxygen Concentration - - Weight 102.1 kg (225 lb) 08/23/2023 12:51 PM CDT Height 188 cm (6' 2) 08/23/2023 12:51 PM CDT Body Mass Index 28.89 08/23/2023 12:51 PM CDT Plan of Treatment Health Maintenance Due Date Last Done Comments ADVANCE CARE PLANNING 1970 ANNUAL REVIEW OF HM ORDERS 1970 CT COLONOGRAPHY 1970 FIT 1970 FLEX SIG 1970 GLUCOSE 1970 sDNA (Cologuard) 1970 HIV SCREENING 1985 HEPATITIS C SCREENING 1988 HEPATITIS B IMMUNIZATION (1 of 3 - 19+ 3-dose series) 1989 LIPID 2010 ZOSTER IMMUNIZATION (1 of 2) 2020 YEARLY PREVENTIVE VISIT 03/14/2022 03/14/2021 COVID-19 Vaccine ( - season) 2022 PHQ-2 (once per calendar year) 2023 INFLUENZA VACCINE (#1) 2023 DTAP/TDAP/TD IMMUNIZATION (4 - Td or Tdap) 12/05/2032 12/05/2022, 09/23/2011, 11/02/2009 COLONOSCOPY 08/22/2033 08/23/2023, 09/2023, 03/17/2013, Additional history exists COLORECTAL CANCER SCREENING 08/22/2033 HPV IMMUNIZATION Aged Out No longer e ligible based on patient's age to complete this topic IPV IMMUNIZATION Aged Out No longer e ligible based on patient's age to complete this topic MENINGITIS IMMUNIZATION Aged Out No l onger eligible based on patient's age to complete this topic Pneumococcal Vaccine: Pediatrics (0 to 5 Years) and At-Risk Patients (6 to 64 Years) Aged Out No longer eligible based on patient's age to complete this topic RSV MONOCLONAL ANTIBODY Aged Out No l onger eligible based on patient's age to complete this topic Procedures Procedure Name Priority Date/Time Associated Diagnosis Comments Colonoscopy w/wo [place] Performed 08/23/2023 12:54 PM CDT Colon cancer screening COLONOSCOPY Routine 08/23/2023 12:46 PM CDT from Last 3 Months Results * COLONOSCOPY (08/23/2023 12:46 PM CDT) [facility] Patient Name: Andi Alexander ? Procedure [...] and ?oxygen saturations were monitored continuously. The ?Olympus Adult Colonoscope, Model # CF-AI626F, ?Censitrac # [id number] was introduced through the ?anus and advanced [...] malignant neoplasm of colon CPT copyright 2021 [employer]. All rights reserved. The codes documented in this report are preliminary and upon crib attendant review may be revised to meet current compliance requirements. Electronically signed by Danitza Resendez MD __ DANITZA RESENDEZ MD 08/23/2023 1:19:20 PM I was physically present for the entire viewing portion of the exam. DANITZA RESENDEZ MD Number of Addenda: 0 Note Initiated On: 08/23/2023 12:46 PM MRN: ?[id number] Procedure Date: ? 08/23/2023 12:46:44 PM Scope Withdrawal Time: 0 hours 7 minutes 12 seconds Total Procedure Duration: 0 hours 15 minutes 59 seconds Estimated Blood Loss: ? Scope In: 12:58:34 PM Scope Out: 1:14:33 PM RADIOLOGY RESULTS 08/23/2023 12:4 6 PM CDT Danitza Resendez MD PROCEDURES RADIOLOGY RESULTS from Last 3 Months Care Teams Pattern Designer Relationship Specialty Start Date End Date David Medley MD [facility] [address] [place] [phone] PCP - General Family Practice 09/23/11
--- OUTSIDE RECORDS SUMMARY | 2023-10-27 07:01 | XMS_ITS | Encounter Summary ---
Author Organization [facility] Address [facility] [place] [address] Care Team Providers Care Still Operator Brandy Name Role Phone David Medley MD Primary Care Provider [phone] Reason for Referral * Consultation (Routine: Next available opening) - Pending Review Specialty Diagnoses / Procedures Referred By Contac t Referred To Contact Diagnoses Colon cancer screening George Duarte MD [facility] [address] [place] [address] Referral ID Status Reason Start Date Expiration Date V isits Requested Visits Authorized [id number] Pending Review 07/22/2023 07/21/2024 1 1 Question Answer Service: Screening Sedation Concerns: No medical conditions affecting sedation Sedation Type: Moderate/Conscious Sedation Preferred Location: [facility] Scheduling Instructions: [facility] will call you to coordinate your care as prescribed by the provider. If you don? t hear from a medical billing representative within 2 business days, please call . Comments Please be aware that coverage of these services is subject to the terms and limitations of your health insurance plan. Call member services at your health plan with any benefit or coverage questions. [facility] will call you to coordinate your care as prescribed by the provider. If you don? t hear from a medical billing representative within 2 business days, please call . Encounter Details Date Type Department Care Team (Late st Contact Info) Description 07/22/2023 Orders Only [address] [place] [phone] George Duarte MD [facility] [address] [place] [address] Colon cancer screening (Primary Dx) Social History Tobacco Use Types Packs/Day Years [...] on file documented as of this encounter Plan of Treatment Scheduled Referrals Name Type Priority Associated Diagnoses Order Schedule Colonoscopy Screening Pill Packer Referral Referral Routine: Next available opening Colon cancer screening Expected: 07/22/2023 (Approximate), Expires: 07/21/2024 documented as of this encounter Visit Diagnoses Diagnosis Colon cancer screening- Primary Special screening for malignant neoplasms, colon documented in this encounter Care Teams Still Operator Brandy Relationship Specialty Start Date End Date David Medley MD [facility] [address] [place] [phone] PCP - General Family Practice 09/23/11 documented as of this encounter
--- OUTSIDE RECORDS SUMMARY | 2023-10-27 07:01 | XMS_ITS | Encounter Summary ---
Author Organization [facility] Address [address] [place] [address]. [place] [address] Care Team Providers Care Clinical Laboratory Manager Name Role Phone David Medley MD Primary Care Provider [phone] Reason for Visit * Reason Onset Date Comments Appointment 08/16/2023 COLON Encounter Details Date Type Department Care Team (Late st Contact Info) Description 08/16/2023 Telephone [facility] [address] [place] [address] Sherly Saede Appointment (COLON) Social History Tobacco Use Types Packs/Day Years [...] on file documented as of this encounter Miscellaneous Notes * Telephone Encounter - Sherly Saeed - 08/16/2023 3:48 PM CDT Endoscopy Scheduling Screen Have you had a positive Covid test in the last 14 days? No What is your communication preference for Instructions and/or Bowel Prep? Mail/USPS What insurance is in the chart? MEDICA Ordering/Referring Provider: DANITZA RESENDEZ (If ordering provider performs procedure, schedule with ordering provider unless otherwise instructed. ) BMI: Estimated body mass index is 30.17 kg/m?? as calculated from the following: Height as of 03/16/13: 1.88 m (6' 2). Weight as of 03/16/13: 106.6 kg (235 lb). Sedation Ordered moderate sedation. If patient BMI > 50 do not schedule in [facility]. If patient BMI > 45 do not schedule at [facility]. Are you taking methadone or Suboxone? No Have you had difficulties, pain, or discomfort during past endoscopy procedures? No Are you taking any prescription medications for pain 3 or more times per week? NO, No provider network mgr required. Do you have a history of malignant hyperthermia? No (Females) Are you currently ? Have you been diagnosed or told you have pulmonary hypertension? No Do you have an LVAD? No Have you been told you have moderate to severe sleep apnea? No Have you been told you have COPD, asthma, or any other lung disease? No Do you have any heart conditions? No Have you ever had or are you waiting for an organ transplant? No. Continue scheduling, no site restrictions. Have you had a stroke or transient ischemic attack (TIA aka mini stroke in the last 6 months? No Have you been diagnosed with or been told you have cirrhosis of the liver? No Are you currently on dialysis? No Do you need assistance transferring? No BMI: Estimated body mass index is 30.17 kg/m?? as calculated from the following: Height as of 03/16/13: 1.88 m (6' 2). Weight as of 03/16/13: 106.6 kg (235 lb). Is patients BMI > 40 and scheduling location [facility]? No Do you take an injectable medication for weight loss or diabetes (excluding insulin)? No Do you take the medication Naltrexone? No Do you take blood thinners? No Prep Are you currently on dialysis or do you have chronic kidney disease? No Do you have a diagnosis of diabetes? No Do you have a diagnosis of cystic fibrosis (CF)? No On a regular basis do you go 3 -5 days between bowel movements? No BMI > 40? No Preferred Pharmacy: [facility] Final Scheduling Details Procedure scheduled Colonoscopy Surgeon: DIPTI Date of procedure: 08/22 Pre-OP / PAC: No - Not required for this site. Location RH - Per order. Sedation Moderate Sedation - Per order. Patient Reminders: You will receive a call from a Nurse to review instructions and health history. This assessment must be completed prior to your procedure. Failure to complete the Nurse assessment may result in the procedure being cancelled. On the day of your procedure, please designate an adult(s) who can drive you home stay with you forthe next 24 hours. The medicines used in the exam will make you sleepy. You will not be able to drive. You cannot take public transportation, ride share services, or non-medical taxi service without a responsible caregiver. Medical transport services are allowed with the requirement that a responsiblecaregiver will receive you at your destination. We require that drivers and caregivers are confirmed prior to your procedure. documented in this encounter Plan of Treatment Not on file documented as of this encounter Visit Diagnoses Not on filedocumented in this encounter Care Teams Clinical Laboratory Manager Relationship Specialty Start Date End Date David Medley MD [facility] [address] [place] [address] PCP - General Family Practice 09/23/11 documented as of this encounter
--- OUTSIDE RECORDS SUMMARY | 2023-10-27 07:01 | XMS_ITS | Encounter Summary ---
Author Organization [facility] Address [address] [place] [address]. [place] [address] Care Team Providers Care Die Cut Operator Name Role Phone David Medley MD Primary Care Provider [phone] Reason for Visit * Reason Onset Date Comments Pt. Information/instruction 08/16/2023 [place] noscopy Encounter Details Date Type Department Care Team (Late st Contact Info) Description 08/16/2023 Telephone [facility] [address] [place] [address] Dee Johnson RN Pt. Information/instruct ion (Colonoscopy ) Social History Tobacco Use Types Packs/Day Years [...] encounter Miscellaneous Notes * Telephone Encounter - Dee Johnson RN - 08/16/2023 4:13 PM CDT Pre assessment completed for upcoming procedure. Procedure details: Patient scheduled for Colonoscopy on 08/23/23. Arrival time: 1230. Procedure time 1315 Facility location: [facility]; [address] [facility] [place] [address]. Check in location: Main entrance at hotel front desk agent. Come through the roundabout underneath the awning (not the ER entrance). Sedation type: Conscious sedation Pre op exam needed? N/A Indication for procedure: screening Designated driver/sales workers policy reviewed. Instructed to have someone stay 6 hours post procedure. Chart review: Electronic implanted devices? No Recent diagnosis of diverticulitis within the last 6 weeks? No Diabetic? No Medication review: Anticoagulants? No NSAIDS? Yes. Ibuprofen (Advil, Motrin). Holding interval of 1 day before procedure. Other medication HOLDING recommendations: N/A Prep for procedure: Bowel prep recommendation: Standard Miralax Due to: standard bowel prep. Prep instructions sent via email. Resent [employer] invite as the email was listed incorrectly in the chart. Patient email is [email or web address] Reviewed procedure prep instructions. Patient verbalized understanding and had no questions or concerns at this time. Dee Johnson RN Endoscopy Procedure Pre Assessment [phone] option 4 documented in this encounter Plan of Treatment Not on file documented as of this encounter Visit Diagnoses Not on filedocumented in this encounter Care Teams Die Cut Operator Relationship Specialty Start Date End Date David Medley MD [facility] [address] [place] [address] PCP - General Family Practice 09/23/11 documented as of this encounter
--- OUTSIDE RECORDS SUMMARY | 2023-10-27 07:01 | XMS_ITS | Referral Summary ---
Author Organization [facility] Address [address] [place] [address] Care Team Providers Care Steam Heating Installer Name Role Phone David Medley MD Primary Care Provider [phone] Encounters Date Type Department Care Team Description 08/23/2023 1:15 PM CDT - 08/23/2023 1:45 PM CDT Surgery [facility] [address] [place] [address] Danitza Resendez MD Colonoscopy 08/23/2023 12:35 PM CDT - 08/23/2023 1:53 PM CDT Hospital Encounter [facility] [address] [place] [address] Danitza Resendez MD Discharge Disposition: Home or Self Care 08/16/2023 Telephone [facility] [address] [address] Dee Johnson RN Pt. Information/instru ction (Colonoscopy ) 08/16/2023 Telephone [facility] [address] [address] Sherly Saeed Appointment (COLON) from Last 3 Months Allergies No known active allergies Medications Medication Sig Dispensed Refills Start Date End Date Status NO ACTIVE MEDICATIONS Act zeinab Resolved Problems Problem Noted Date Diagnosed Date Resolved Date Other joint derangement, not elsewhere classified, shoulder region 04/13/2013 06/17/2013 Immunizations Name Administration Dates Next Due TDAP [...] 08/23/2023 12:51 PM CDT Plan of Treatment Not on file Procedures Procedure Name Priority Date/Time Associated Diagnosis Comments Colonoscopy w/wo [place] Performed 08/23/2023 12:54 PM CDT Colon cancer screening COLONOSCOPY Routine 08/23/2023 12:46 PM CDT from Last 3 Months Results * COLONOSCOPY (08/23/2023 12:46 PM CDT) [facility] Patient Name: Andi Alexander ? Procedure [...] continuously. The ?Olympus Adult Colonoscope, Model # CF-WW079U, ?Censitrac # [id number] was introduced through the ?anus and advanced [...] malignant neoplasm of colon CPT copyright 2021 [employer]. All rights reserved. The codes documented in this report are preliminary and upon consultative sales associate review may be revised to meet current compliance requirements. Electronically signed by Danitza Resendez MD __ DANITZA RESENDEZ MD 08/23/2023 1:19:20 PM I was physically present for the entire viewing portion of the exam. DANITZA RESENDEZ MD Number of Addenda: 0 Note Initiated On: 08/23/2023 12:46 PM MRN: [id number] Procedure Date: ? 08/23/2023 12:46:44 PM Scope Withdrawal Time: 0 hours 7 minutes 12 seconds Total Procedure Duration: 0 hours 15 minutes 59 seconds Estimated Blood Loss: ? Scope In: 12:58:34 PM Scope Out: 1:14:33 PM RADIOLOGY RESULTS 08/23/2023 12:4 6 PM CDT Danitza Resendez MD PROCEDURES RADIOLOGY RESULTS from Last 3 Months Care Teams Steam Heating Installer Relationship Specialty Start Date End Date David Medley MD [facility] [address] [place] [phone] PCP - General Family Practice 09/23/11
--- OUTSIDE RECORDS SUMMARY | 2023-10-27 07:01 | XMS_ITS | Encounter Summary ---
Author Organization [facility] Address [address] [place] [address]. [place] [address] Care Team Providers Care Wastewater Treatment Engineer Name Role Phone David Medley MD Primary Care Provider [phone] Reason for Visit * Auth/Cert Specialty Diagnoses / Procedures Referred By Morales cole Referred To Contact Gastroenterology Diagnoses Colon cancer screening Colon cancer screening [Z12.11] Procedures NE COLONOSCOPY W/WO BRUSH/WASH Colonoscopy [facility] [address] [place] [address] Referral ID Status Reason Start Date Expiration Date Visits Re quested Visits Authorized [id number] 1 1 Encounter Details Date Type Department Care Team (Latest Contact Info) Description 08/23/2023 12:35 PM CDT - 08/23/2023 1:53 PM CDT Hospital Encounter [facility] [place] [address] [place] [phone] Danitza Resendez MD [facility] [id number] [place] [address] Discharge Disposition: Home or Self Care Social History Tobacco Use Types Packs/Day Years [...] Everywhere. * Diverticulosis and Diverticulitis: General Info (Omani) * High-Fiber Diet (Omani) documented in this encounter Medications at Time [...] Procedure Laterality Date COLONOSCOPY 03/17/2013 Dr. Resendez [facility] COLONOSCOPY 03/17/2013 Procedure: COLONOSCOPY; Colonoscopy/WW; Surgeon: Danitza [...] Priority Date/Time Associated Diagnosis Comments Colonoscopy w/wo [place] Performed 08/23/2023 12:54 PM CDT Colon cancer screening COLONOSCOPY Routine 08/23/2023 12:46 PM CDT documented in this encounter Results * COLONOSCOPY (08/23/2023 12:46 PM CDT) [facility] Patient Name: Andi Alexander ? Procedure [...] continuously. The ?Olympus Adult Colonoscope, Model # CF-KK365Q, ?Censitrac # [id number] was introduced through the ?anus and advanced [...] malignant neoplasm of colon CPT copyright 2021 [employer]. All rights reserved. The codes documented in this report are preliminary and upon administrative court justice review may be revised to meet current compliance requirements. Electronically signed by Danitza Resendez MD __ DANITZA RESENDEZ MD 08/23/2023 1:19:20 PM I was physically present for the entire viewing portion of the exam. DANITZA RESENDEZ MD Number of Addenda: 0 Note Initiated On: 08/23/2023 12:46 PM MRN: ?[id number] Procedure Date: ? 08/23/2023 12:46:44 PM Scope Withdrawal Time: 0 hours 7 minutes 12 seconds Total Procedure Duration: 0 hours 15 minutes 59 seconds Estimated Blood Loss: ? Scope In: 12:58:34 PM Scope Out: 1:14:33 PM RADIOLOGY RESULTS 08/23/2023 12:4 6 PM CDT Danitza Resendez MD PROCEDURES RADIOLOGY RESULTS documented in this encounter Visit Diagnoses Not on filedocumented in this encounter Administered Medications Inactive Administered [...] on Sat08/23/23 at 1251, For 1 dose, [place] throat with 1 spray 5 minutes prior [...] on Sat08/23/23 at 1251, For 1 dose, [place] throat with 1 spray 5 minutes prior [...] provider. documented in this encounter Care Teams Wastewater Treatment Engineer Relationship Specialty Start Date End Date David Medley MD [facility] [address] [place] [address] PCP - General Family Practice 09/23/11 documented as of this encounter
--- OUTSIDE RECORDS SUMMARY | 2023-10-27 07:02 | XMS_ITS | Clinical Summary ---
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 Immunizations Name Administration Dates Next Due Tdap 09/23/2011,11/02/2009 Family History Medical History Relation Name Comments Diabetes Father Relation Name Status Comments Father Social History Tobacco Use Types Packs/Day Years Used Date Smoking Tobacco: Former Smokeless Tobacco: Never Alcohol Use Standard Drinks/Week Comments Yes 0 (1 standard drink = 0.6 oz pure alcohol) Alcoholic Drinks/day: wine 8 glasses per week PHQ-2 Answer Date Recorded PHQ-2 TOTAL SCORE 0 03/14/2021 Social Connections Answer Date Recorded Frequency of Communication with Friends and Fami ly Not on file 03/14/2021 Financial Resource Strain Answer Date R ecorded Difficulty of Paying Living Expenses Not on file 03/14/2021 Difficulty of Paying Living Expenses Not on file 03/14/2021 Sex and Gender Information Value Date Recorded Sex Assigned at Not on file Gender Identity Not on file Sexual Orientation Not on file Obstetrics History Last Filed Vital Signs Vital Sign Reading Time Taken Comments Blood Pressure 108/68 10/17/2021 11:49 AM CDT Pulse 58 10/17/2021 11:49 AM CDT Temperature 36.4 ??C (97.5 ??F) 10/17/2021 11:49 AM C DT Respiratory Rate 20 11/19/2002 12:00 AM CDT Oxygen Saturation 99% 10/17/2021 11:49 AM CDT Inhaled Oxygen Concentration - - Weight 113.5 kg (250 lb 2 oz) 10/17/2021 11:49 A M CDT Height 187 cm (6' 1.62) 03/14/2021 11:35 AM CANDLEMAKER Body Mass Index 32.44 03/14/2021 11:35 AM CANDLEMAKER Plan of Treatment Health Maintenance Due Date Last Done Comments HIV for age 15-65 1985 Hepatitis C screening for ag e 18-79 1988 Zoster (shingles) series for age 50+ (1 of 2) 2020 Tetanus booster 09/22/2021 09/23/2011, 11/02/2009 BMI (ht and wt on same day) for age 18+ 03/14/2022 03/14/2021 Depression screening for age 12+ 03/15/2022 03/15/2021, 03/14/2021 COVID-19 vaccine series (2022-24 season) 2022 Colonoscopy through age 75 03/17/202303/17, 03/17/2013 Influenza for age 50-64 11/17/2023 Lipids for age 45-75 10/17/2026 10/17/2021, 03/14/2021 Tdap Completed 09/23/2011, 11/02/2009 Pneumococcal series for age 6-64 Aged Out No longer eligible b ased on patient's age to complete this topic Procedures Procedure Name Priority Date/Time Associated Diagnosis Comments LIPID PANEL W REFLEX MEASURED LDL Routine 10/17/2021 12:25 PM CDT Hyperlipidemia, unspecified hyperlipidemia type SCAN-COLONOSCOPY 03/17/2013 12:0 0 AM CANDLEMAKER from Last 3 Months or Most Recently Relevant to Health Maintenance Results * (ABNORMAL) LIPID PANEL W REFLEX MEASURED LDL (10/17/2021 12:25 PM CDT) CHOLESTEROL,TOTAL 235(H) 100 - 199 mg/dL 10/18/2021 5:00 AM CDT [facility] TRIGLYCERIDES 243(H) <150 mg/dL 10/18/2021 5:00 AM CDT [facility] HDL CHOLESTEROL 46 >40 mg/dL 5:00 AM CDT [facility] NON-HDL CHOLESTEROL 189(H) <145 mg/dl 10/18/2021 5:00 AM CDT [facility] CHOL/HDL RATIO 5.11(H) <4.50 10/18/2021 5:00 AM CDT [facility] LDL CHOLESTEROL 140(H) <=130 mg/dL 10/18/2021 5:00 AM CDT [facility] VLDL CHOLESTEROL 49(H) <=30 mg/dL 10/18/2021 5:00 AM CDT [facility] PROVIDER ORDERED STATUS RANDOM 10/18/2021 5:00 AM T [facility] Blood BLOOD SPECIMEN / Unknown Venipuncture / Unknown 10/17/2021 12:25 PM CDT 10/17/2021 12:24 PM CDT Todd Ortiz MD [facility] [address] [place] [address], [place] * SCAN-COLONOSCOPY (03/17/2013 12:00 AM CANDLEMAKER) Scanner OTHER from Last 3 Months or Most Recently Relevant to Health Maintenance Care Teams Busgirl Relationship Specialty Start Date End Date Pcp, No . PCP - General 09/05/23
== END 2023-10-23 08:11 | disposition home or self-care (01) ==
LOC: NFLDREF 10-27 06:59
PROVIDERS: PCP Family Medicine; Referring Provider Family Medicine; Visit Provider Emergency Medicine
DX: R63.4 Abnormal weight loss (principal); E78.5 Hyperlipidemia, unspecified; Z12.5 Encounter for screening for malignant neoplasm of prostate
CPT/HCPCS: 80053; 80061; 84443; 86140; G0103